=== PATIENT | female | born 1995 | race African-American/Black ===

== ENCOUNTER 2018-10-10 12:21 | Emergency (ER) | payer OTHER ==
[~2018-10-10] VITALS: Ht 152.4 cm; Wt 67.1 kg
[2018-10-10 13:35] LABS: ABSOLUTE NEUTROPHILS 4.4 thou/uL (1.4-8.2); BASOPHILS 0.7 % (0.0-2.0); EOSINOPHILS 0.8 % (0.0-3.0); HEMATOCRIT 44.4 % (37.0-47.0); HEMOGLOBIN 15.4 gm/dL (12.0-15.0); LYMPHOCYTES 27.4 % (24.0-44.0); MCH 31.9 pg (26.0-34.0); MCHC 34.6 g/dL (28.0-37.0); MCV 92.3 fL (80.0-100.0); MONOCYTES 6.8 % (1.0-8.0); PLATELET COUNT 280 thou/uL (150-400); POLYS 64.3 % (36.0-66.0); RBC 4.81 mil/uL (4.20-5.00); RDW 13.1 % (10.5-14.5); WBC 6.8 thou/uL (4.0-11.0)
[2018-10-10 13:39] LABS: CALCIUM 9.2 mg/dL (8.5-10.1); POTASSIUM 3.5 mmol/L (3.5-5.1)
[2018-10-10 13:45] LABS: ALBUMIN 4.2 g/dL (3.4-5.0); TOTAL BILIRUBIN 0.5 mg/dL (<0.1-1.0); TOTAL PROTEIN 8.3 g/dL (6.4-8.2)
[2018-10-10] MEDS ORDERED: BUTALB-APAP-CA1 EACH PO (14:27)
[2018-10-10 14:51] VITALS: BP 139/86
== END 2018-10-10 14:41 | disposition home or self-care (01) ==
LOC: ER 12:21
PROVIDERS: Physician Assistant
DX: R51 Headache (principal)

== ENCOUNTER 2019-05-27 14:16 | Emergency (ER) | payer OTHER ==
[~2019-05-27] VITALS: Ht 152.4 cm; Wt 64.9 kg
[~2019-05-27 14:16] MED LIST: BUTALB-APAP-CA1 EACH PO
[2019-05-27 14:51] VITALS: BP 105/67
[2019-05-27] MEDS ORDERED: ULTRAM 50MG TAB50 MG PO (15:43)
== END 2019-05-27 15:47 | disposition home or self-care (01) ==
LOC: ER 14:16
DX: S91.201A Unspecified open wound of right great toe with damage to nail, initial encounter (principal); W22.03XA Walked into furniture, initial encounter; Y93.89 Activity, other specified; Y92.89 Other specified places as the place of occurrence of the external cause; Y99.0 Civilian activity done for income or pay